=== PATIENT | female | born 1985 | race Caucasian/White ===

== ENCOUNTER 2016-11-06 12:09 | Emergency (ER) | payer OTHER ==
[~2016-11-06] VITALS: Ht 154.9 cm; Wt 117.9 kg
[~2016-11-06 12:09] MED LIST: MOTRIN800 MG PO; PRENATAL VITAMI1 T10 PO
[2016-11-06 12:11] VITALS: BP 114/80
--- NOTE | 2016-11-06 12:20 | NUR ---
Patient ambulated to bed 6. INVOICE CODER evaluating patient at bedside.
--- NOTE | 2016-11-06 12:42 | NUR ---
Patient being evaluated by physician at bedside.
[2016-11-06] MEDS ORDERED: ONDANSETRON 4 MG/2 ML VIAL IVP ONE (12:45)
[2016-11-06] MEDS ORDERED: MORPHINE SULFATE 10 MG/ML SYR IVP ONE (12:45)
--- NOTE | 2016-11-06 13:11 | NUR ---
31/F presents to ED for evaluation of RUQ abdominal pain since yesterday. Pt c/o sharp pain to RUQ, pt states she has hx of gallstones. Patient states the pain was sudden onset, sharp, non radiating, 04/25. Patient denies N/V/D. Denies s/s of UTI. Denies fever or chills. LMP currently. Patient appears restless and rubbing her RUQ. Abdomen soft, non tender, active bowel sounds x4 quadrants. Patient is AOX4, serbian speaking. VSS.
--- NOTE | 2016-11-06 13:55 | NUR ---
Pt is now telling me that she had tested positive for a urine 2 weeks ago. Patient states now that her LMP was some time in September but she is not sure. Pt provided a urine sample.
--- NOTE | 2016-11-06 13:59 | NUR ---
Dr. Elise made aware of patient's urine results. Pt reports being G-8, P-5, A-2 with 2 miscarriages. Pt states she started bleeding yesterday after the sudden onset of patient and states "I passed a ball of I don't know what."
--- NOTE | 2016-11-06 14:32 | NUR ---
Patient appears to be resting comfortably in bed. Vital Signs within normal limits. Respirations even and unlabored.
--- NOTE | 2016-11-06 14:51 | NUR ---
Patient taken to US via w/c.
--- NOTE | 2016-11-06 16:19 | NUR ---
Patient appears to be resting comfortably in bed. Vital Signs within normal limits. Respirations even and unlabored.
--- NOTE | 2016-11-06 19:20 | NUR ---
Pt report given to Sven. Transfer of care at this time.
--- NOTE | 2016-11-06 19:37 | NUR ---
RECEIVED PT IN STABLE CONDITION FROM JOHN MOLINA. NO SOB, NO SIGNS OF DISTRESS. STABLE. WILL CONTINUE TO MONITOR.
--- NOTE | 2016-11-06 19:37 | NUR ---
Pt report given to Ashly. Transfer of care at this time.
[2016-11-06 19:50] VITALS: BP 105/67
--- NOTE | 2016-11-06 19:50 | NUR ---
Patient discharged with v/s stable. Written and verbal after care instructions given and explained. Patient alert, oriented and verbalized understanding of instructions. Ambulatory with steady gait. All questions addressed prior to discharge. ID band removed. Patient advised to follow up with PMD. Rx of ANH THORPE given. Patient educated on indication of medication including possible reaction and side effects. Opportunity to ask questions provided and answered.
== END 2016-11-06 19:50 | disposition home or self-care (01) ==
LOC: MED 12:09
DX: O20.0 Threatened abortion (principal); O99.611 Diseases of the digestive system complicating pregnancy, first trimester; K80.70 Calculus of gallbladder and bile duct without cholecystitis without obstruction; Z3A.08 8 weeks gestation of pregnancy
CPT/HCPCS: 36415; 76705; 76801; 80053; 81025; 84702; 85025; 86901; 96374; 96375; 99285; J2270; J2405; Q0092

== ENCOUNTER 2018-06-22 14:48 | Emergency (ER) | payer OTHER ==
[~2018-06-22] VITALS: Ht 157.5 cm; Wt 136.1 kg
[~2018-06-22 14:48] MED LIST changes: +IBUP-974 PO; -MOTRIN800 MG PO; +PREN-385 PO; -PRENATAL VITAMI1 T10 PO
[2018-06-22 15:00] VITALS: BP 134/63
--- NOTE | 2018-06-22 15:29 | NUR ---
PATIENT AMBULATED TO ER BED 11.
--- NOTE | 2018-06-22 15:32 | NUR ---
PT C/O LOW BACK PAIN X1 DAY, DENIES TRAUMA INJURY. REPORTS 10/10 SHARP PAIN. DENIES N/V/D; SKIN IS PINK/WARM/DRY; AAOX4 WITH EVEN AND STEADY GAIT; LUNGS CLEAR BL; HR EVEN AND REGULAR; PT DENIES ANY FEVER, CP, SOB, OR COUGH AT THIS TIME; VSS; PATIENT POSITIONED FOR COMFORT; HOB ELEVATED; BEDRAILS UP X2; BED DOWN. ER MD MADE AWARE OF PT STATUS.
[2018-06-22] MEDS ORDERED: KETOROLAC 60 MG/2 ML VIAL IM ONE (15:45)
--- NOTE | 2018-06-22 17:00 | NUR ---
NO STATED NEEDS AT THIS TIME.
--- NOTE | 2018-06-22 18:11 | NUR ---
DR MCCARTHY AT BEDSIDE.
[2018-06-22 18:31] VITALS: BP 125/65
== END 2018-06-22 18:32 | disposition home or self-care (01) ==
LOC: MED 14:48
DX: M54.5 Low back pain (principal); R11.2 Nausea with vomiting, unspecified; Z79.899 Other long term (current) drug therapy
CPT/HCPCS: 81002; 81025; 96372; 99283; J1885

== ENCOUNTER 2018-11-22 08:54 | Emergency (ER) | payer OTHER ==
[~2018-11-22] VITALS: Ht 154.9 cm; Wt 176.9 kg
[2018-11-22 09:04] VITALS: BP 159/89
--- NOTE | 2018-11-22 09:18 | NUR ---
PATIENT PRESENTS TO ED WITH c/o suprapubic pain and burning pain upon voiding x yesterday pain radiating to right flank also adds chronic constipation and nausea after eating .; SKIN IS PINK/WARM/DRY; AAOX4 WITH EVEN AND STEADY GAIT; LUNGS CLEAR BL; HR EVEN AND REGULAR; PT DENIES ANY FEVER, CP, SOB, OR COUGH AT THIS TIME; PATIENT STATES PAIN OF 9/10 AT THIS TIME; VSS; PATIENT POSITIONED FOR COMFORT; HOB ELEVATED; BEDRAILS UP X2; BED DOWN. ER MD MADE AWARE OF PT STATUS.
[2018-11-22] MEDS ORDERED: KETOROLAC 60 MG/2 ML VIAL IM ONE (09:20)
[2018-11-22] MEDS ORDERED: ONDANSETRON 4 MG ODT PO ONE (09:20)
--- NOTE | 2018-11-22 09:33 | NUR ---
PT HAD REFUSED BLOOD WORK IF SHE WAS NOT GOING TO HAVE AN ULTRASOUND. Libra Diaz NOTIFIED AND SPOKE WITH PT---PT WILL HAVE BLOOD WORK
[2018-11-22 09:59] LABS: BASOPHILS % (AUTO) 0.4 % (0.0-2.0); EOSINOPHILS # (AUTO) 0.3 K/uL (0-0.4); EOSINOPHILS % (AUTO) 2.8 % (0.0-4.0); HEMATOCRIT 37.6 % (36-48); HEMOGLOBIN 12.2 g/dL (12.0-16.0); LYMPHOCYTES # (AUTO) 2.6 K/uL (2.5-16.5); LYMPHOCYTES % (AUTO) 28.1 % (20.5-51.1); MEAN CORPUSCULAR HEMOGLOBIN 28 pg (27-31); MEAN CORPUSCULAR HGB CONC 32 g/dL (33-37); MEAN CORPUSCULAR VOLUME 87.3 fL (80-94); MONOCYTES # (AUTO) 0.7 K/uL (0.8-1.0); NEUTROPHILS # (AUTO) 5.7 K/uL (1.8-7.7); NEUTROPHILS % (AUTO) 60.7 % (42.2-75.2); PLATELET COUNT (AUTO) 209 K/uL (140-450); RED BLOOD CELL COUNT(AUTO) 4.31 MIL/uL (4.20-5.40); RED CELL DISTRIBUTION WIDTH 15.6 % (11.6-13.7); WHITE BLOOD COUNT (AUTO) 9.3 K/uL (4.8-10.8)
[2018-11-22 10:08] LABS: APPEARANCE,URINE CLEAR (CLEAR); BILIRUBIN,URINE NEGATIVE (NEGATIVE); BLOOD, URINE NEGATIVE (NEGATIVE); COLOR,URINE YELLOW (YELLOW); LEUKOCYTE ESTERASE ,URINE NEGATIVE (NEGATIVE); NITRITE, URINE NEGATIVE (NEGATIVE); UGLUCOSE NEGATIVE (NEGATIVE)
[2018-11-22 10:24] LABS: ANION GAP 11.2 (8-16); CARBON DIOXIDE 28.7 mmol/L (21-32); CREATININE 0.6 mg/dL (0.6-1.3); POTASSIUM 3.9 mmol/L (3.5-5.1)
[2018-11-22 10:29] LABS: ALBUMIN 3.1 g/dL (3.4-5.0); TOTAL BILIRUBIN 0.4 mg/dL (0.0-1.0)
[2018-11-22 11:22] VITALS: BP 147/91
--- NOTE | 2018-11-22 11:23 | NUR ---
Patient discharged with v/s stable. Written and verbal after care instructions given and explained. Patient alert, oriented and verbalized understanding of instructions. Ambulatory with steady gait. All questions addressed prior to discharge. ID band removed. Patient advised to follow up with PMD. Rx of KEFLEX/ZOFRAN/NORCO given. Patient educated on indication of medication including possible reaction and side effects. Opportunity to ask questions provided and answered. LAB RESULTS HANDED TO PT FOR F/U WITH PMD
== END 2018-11-22 11:23 | disposition home or self-care (01) ==
LOC: MED 08:54
DX: K80.20 Calculus of gallbladder without cholecystitis without obstruction (principal); Z79.1 Long term (current) use of non-steroidal anti-inflammatories (NSAID); Z79.899 Other long term (current) drug therapy
CPT/HCPCS: 36415; 80053; 81003; 81025; 83605; 83690; 85025; 87040; 96372; 99283; J1885; Q0162

== ENCOUNTER 2018-12-22 15:35 | Emergency (ER) | payer OTHER ==
[~2018-12-22] VITALS: Ht 154.9 cm; Wt 182.8 kg
--- NOTE | 2018-12-22 16:15 | NUR ---
PATIENT PRESENTS TO ED WITH C/O RT FOOT PAIN X 1 MONTH . REPORTS BURNING CONSTANT PAIN OF 9/10. PT DENIES TRAUMA/INJURY. VSS. PATIENT POSITIONED FOR COMFORT; HOB ELEVATED; BEDRAILS UP X1; BED DOWN. PENDING ER MD EVALUATION.
[2018-12-22] MEDS ORDERED: KETOROLAC 60 MG/2 ML VIAL IM ONE (16:20)
[2018-12-22 17:40] VITALS: BP 121/60
== END 2018-12-22 17:41 | disposition home or self-care (01) ==
LOC: MED 15:35
DX: M79.671 Pain in right foot (principal); Z79.1 Long term (current) use of non-steroidal anti-inflammatories (NSAID); Z79.899 Other long term (current) drug therapy
CPT/HCPCS: 73630; 81025; 96372; 99283; J1885; 81002

== ENCOUNTER 2021-08-10 11:05 | Emergency (ER) | payer OTHER ==
[~2021-08-10] VITALS: Ht 157.5 cm; Wt 107.0 kg
[2021-08-10 11:26] VITALS: BP 143/93
--- NOTE | 2021-08-10 11:29 | NUR ---
TENT 2.
--- NOTE | 2021-08-10 11:30 | NUR ---
BIB FAMILY C/O COUGH, 02/22 GAYTAN, SORE THROAT, BODY ACHE X 3 DAYS. PMH: DM
[2021-08-10] MEDS ORDERED: ACETAMINOPHEN EXTRA STRENGTH 500 MG TAB PO ONE (11:50)
[2021-08-10] MEDS ORDERED: BPM/118S31 PO (12:19)
[2021-08-10] MEDS ORDERED: ACET-10509 PO (12:19)
--- NOTE | 2021-08-10 12:19 | NUR ---
PT SWABBED FOR HEATH PAYTON, WALKED TO LAB.
[2021-08-10 13:46] VITALS: BP 136/87
--- NOTE | 2021-08-10 13:46 | NUR ---
Patient discharged with v/s stable. Written and verbal after care instructions given FOR VIRAL ILLNESSand explained. Patient alert, oriented and verbalized understanding of instructions. Ambulatory with steady gait. All questions addressed prior to discharge. ID band removed. Patient advised to follow up with PMD. Rx of TYNENOL, AND BROMFED given. Patient educated on indication of medication including possible reaction and side effects. Opportunity to ask questions provided and answered.
== END 2021-08-10 13:46 | disposition home or self-care (01) ==
LOC: MED 11:05
DX: B34.9 Viral infection, unspecified (principal); Z20.822 Contact with and (suspected) exposure to COVID-19; I10 Essential (primary) hypertension
CPT/HCPCS: 99283; U0003

== ENCOUNTER 2023-05-05 11:26 | Inpatient (IN) | payer OTHER ==
[~2023-05-05] VITALS: Ht 152.4 cm; Wt 162.0 kg
[~2023-05-05 11:26] MED LIST changes: +ACET-10509 PO; +BROM118S70 PO
[2023-05-05 11:35] VITALS: BP 196/102; PULSE 73; RESP 18; TEMP 98; O2SAT 98
[2023-05-05 15:07] LABS: BASOPHILS # (AUTO) 0.1 K/uL (0.00-0.22); EOSINOPHILS # (AUTO) 0.1 K/uL (0-0.4); LYMPHOCYTES # (AUTO) 3.5 K/uL (2.5-16.5); MONOCYTES # (AUTO) 1.1 K/uL (0.8-1.0)
[2023-05-05] MEDS ORDERED: NACL 0.9% 1,000 ML IV ONE (15:35)
[2023-05-05 16:12] LABS: APPEARANCE,URINE CLEAR (CLEAR); BILIRUBIN,URINE NEGATIVE (NEGATIVE); BLOOD, URINE TRACE-I (NEGATIVE); COLOR,URINE YELLOW (YELLOW); LEUKOCYTE ESTERASE ,URINE NEGATIVE (NEGATIVE); NITRITE, URINE NEGATIVE (NEGATIVE); PH,URINE 6.5 (5.0-9.0); PROTEIN,URINE TRACE (NEGATIVE); UGLUCOSE 3+ (NEGATIVE); UROBILINOGEN,URINE 0.2 EU/dL (0.2 - 1)
[2023-05-05 16:14] LABS: ALBUMIN 3.6 g/dL (3.4-5.0); ANION GAP 13.9 (8-16); CALCIUM 9.1 mg/dL (8.5-10.1); CARBON DIOXIDE 25.7 mmol/L (21-32); CREATININE 0.5 mg/dL (0.6-1.3); POTASSIUM 5.6 mmol/L (3.5-5.1); TOTAL PROTEIN, SERUM 7.6 g/dL (6.4-8.2)
[2023-05-05 16:18] LABS: BASOPHILS % (AUTO) 0.7 % (0.0-2.0); EOSINOPHILS % (AUTO) 1.8 % (0.0-4.0); HEMATOCRIT 44.1 % (36-48); HEMOGLOBIN 14.7 g/dL (12.0-16.0); LYMPHOCYTES % (AUTO) 34.4 % (20.5-51.1); MEAN CORPUSCULAR HEMOGLOBIN 30 pg (27-31); MEAN CORPUSCULAR HGB CONC 34 g/dL (33-37); MEAN CORPUSCULAR VOLUME 88.8 fL (80-94); NEUTROPHILS # (AUTO) 7.8 K/uL (1.8-7.7); NEUTROPHILS % (AUTO) 56.1 % (42.2-75.2); PLATELET COUNT (AUTO) 172 K/uL (140-450); RED BLOOD CELL COUNT(AUTO) 4.96 MIL/uL (4.20-5.40); RED CELL DISTRIBUTION WIDTH 14.2 % (11.6-13.7); WHITE BLOOD COUNT (AUTO) 13.8 K/uL (4.8-10.8)
[2023-05-05 16:26] LABS: RBC,URINE 20-50 /HPF (0-5)
[2023-05-05 16:27] LABS: BACTERIA,URINE 1+ /HPF (None Seen); MUCUS,URINE None Seen /LPF (None Seen); SQUAMOUS EPITHELIAL CELL,UR None Seen /LPF (0-3 (FEW)); YEAST,URINE None Seen /HPF (None Seen)
[2023-05-05] MEDS ORDERED: KETOROLAC 30 MG/ML VIAL IVP ONE (16:45)
[2023-05-05] MEDS ORDERED: cefTRIAXone 1,000 MG VIAL ONE (16:51)
[2023-05-05] MEDS ORDERED: MAGNESIUM OXIDE 400 MG TAB PO PRN (17:20)
[2023-05-05] MEDS ORDERED: ACETAMINOPHEN 325 MG TAB PO PRN (17:20)
[2023-05-05] MEDS ORDERED: KCL 20 MEQ IN 100 mL PREMIX 200 ML IV PRN (17:20)
[2023-05-05] MEDS ORDERED: HYDROcodone/APAP 5/325 MG 1 TAB TAB PO PRN (17:20)
[2023-05-05] MEDS ORDERED: POTASSIUM CHLORIDE 10 MEQ TABER PO PRN (17:20)
[2023-05-05] MEDS ORDERED: ONDANSETRON 4 MG/2 ML VIAL IVP PRN (17:20)
[2023-05-05] MEDS ORDERED: hydrALAZINE 20 MG/ML VIAL IVP PRN (17:25)
[2023-05-05] MEDS: NIFEdipine 60 MG TABER PO SCH (18:09)
[2023-05-05 18:12] VITALS: BP 145/81; PULSE 54; RESP 18; TEMP 97; O2SAT 98
[2023-05-05 18:13] VITALS: PULSE 54; RESP 18; O2SAT 98
[2023-05-05 20:00] VITALS: BP 138/78; PULSE 77; RESP 20; TEMP 97.4; O2SAT 96
[2023-05-05 20:01] VITALS: PULSE 75
[2023-05-05] MEDS: BLOOD GLUCOSE MONITORING 1 DEV DEV FS SCH (21:14)
[2023-05-05] MEDS: INSULIN LISPRO SLIDING SCALE 100 UNITS/ML VIAL SUBQ PRN (21:16)
[2023-05-05 23:54] VITALS: PULSE 61
[2023-05-06] VITALS (9 sets, daily range): BP systolic 108–143; BP diastolic 62–78; PULSE 62–95; RESP 16–20; TEMP 97.9–98.8; O2SAT 94–99
[2023-05-06] MEDS: MORPHINE SULFATE 4 MG/ML SYR IVP PRN ×2 (04:29→20:30)
[2023-05-06 06:41] LABS: CALCIUM 8.9 mg/dL (8.5-10.1); CARBON DIOXIDE 25.6 mmol/L (21-32); CREATININE 0.6 mg/dL (0.6-1.3); POTASSIUM 3.6 mmol/L (3.5-5.1)
[2023-05-06] MEDS: BLOOD GLUCOSE MONITORING 1 DEV DEV FS SCH ×4 (06:41→20:11)
[2023-05-06] MEDS: INSULIN LISPRO SLIDING SCALE 100 UNITS/ML VIAL SUBQ PRN ×4 (06:57→20:21)
[2023-05-06 07:13] LABS: BASOPHILS % (AUTO) 0.3 % (0.0-2.0); EOSINOPHILS # (AUTO) 0.3 K/uL (0-0.4); EOSINOPHILS % (AUTO) 2.6 % (0.0-4.0); HEMATOCRIT 42.6 % (36-48); HEMOGLOBIN 14.1 g/dL (12.0-16.0); LYMPHOCYTES # (AUTO) 3.7 K/uL (2.5-16.5); LYMPHOCYTES % (AUTO) 34.8 % (20.5-51.1); MEAN CORPUSCULAR HEMOGLOBIN 30 pg (27-31); MEAN CORPUSCULAR HGB CONC 33 g/dL (33-37); MEAN CORPUSCULAR VOLUME 89.7 fL (80-94); MONOCYTES # (AUTO) 0.6 K/uL (0.8-1.0); MONOCYTES % (AUTO) 5.7 % (1.7-9.3); NEUTROPHILS # (AUTO) 5.9 K/uL (1.8-7.7); NEUTROPHILS % (AUTO) 56.6 % (42.2-75.2); PLATELET COUNT (AUTO) 157 K/uL (140-450); RED BLOOD CELL COUNT(AUTO) 4.74 MIL/uL (4.20-5.40); RED CELL DISTRIBUTION WIDTH 14.2 % (11.6-13.7); WHITE BLOOD COUNT (AUTO) 10.5 K/uL (4.8-10.8)
[2023-05-06] MEDS: NIFEdipine 60 MG TABER PO SCH (09:35)
[2023-05-06] MEDS: INSULIN LANTUS 100 UNITS/ML 10 ML VIAL SUBQ SCH (16:25)
[2023-05-07 06:20] LABS: BASOPHILS % (AUTO) 0.3 % (0.0-2.0); EOSINOPHILS # (AUTO) 0.3 K/uL (0-0.4); EOSINOPHILS % (AUTO) 2.9 % (0.0-4.0); HEMATOCRIT 41.2 % (36-48); HEMOGLOBIN 13.4 g/dL (12.0-16.0); LYMPHOCYTES % (AUTO) 34.5 % (20.5-51.1); MEAN CORPUSCULAR HEMOGLOBIN 29 pg (27-31); MEAN CORPUSCULAR HGB CONC 33 g/dL (33-37); MONOCYTES # (AUTO) 0.7 K/uL (0.8-1.0); MONOCYTES % (AUTO) 5.8 % (1.7-9.3); NEUTROPHILS # (AUTO) 6.5 K/uL (1.8-7.7); NEUTROPHILS % (AUTO) 56.5 % (42.2-75.2); PLATELET COUNT (AUTO) 158 K/uL (140-450); RED BLOOD CELL COUNT(AUTO) 4.63 MIL/uL (4.20-5.40); RED CELL DISTRIBUTION WIDTH 14.3 % (11.6-13.7); WHITE BLOOD COUNT (AUTO) 11.5 K/uL (4.8-10.8)
[2023-05-07 06:36] LABS: ANION GAP 10.8 (8-16); CALCIUM 8.8 mg/dL (8.5-10.1); CREATININE 0.6 mg/dL (0.6-1.3); POTASSIUM 3.8 mmol/L (3.5-5.1)
[2023-05-07] MEDS: INSULIN LISPRO SLIDING SCALE 100 UNITS/ML VIAL SUBQ PRN ×3 (06:48→16:14)
[2023-05-07] MEDS: BLOOD GLUCOSE MONITORING 1 DEV DEV FS SCH ×3 (06:49→16:13)
[2023-05-07 08:00] VITALS: BP 111/77; PULSE 80; RESP 18; TEMP 98.7; O2SAT 97
[2023-05-07] MEDS: NIFEdipine 60 MG TABER PO SCH (10:28)
[2023-05-07] MEDS: INSULIN LANTUS 100 UNITS/ML 10 ML VIAL SUBQ SCH (10:31)
[2023-05-07] MEDS ORDERED: NIFE60TA39 PO (11:57)
[2023-05-07] MEDS ORDERED: CEFD300C3 PO (11:59)
== END 2023-05-07 16:30 | disposition home or self-care (01) | DRG 720 ==
LOC: MED 11:26 → MTU 17:20
PROVIDERS: ADMIT Student in an Organized Health Care Education/Training Program; ATTEND Student in an Organized Health Care Education/Training Program
DX: A41.9 Sepsis, unspecified organism (principal); Z68.44 Body mass index [BMI] 60.0-69.9, adult; I16.0 Hypertensive urgency; N39.0 Urinary tract infection, site not specified; E66.9 Obesity, unspecified; E78.5 Hyperlipidemia, unspecified; I10 Essential (primary) hypertension; E11.9 Type 2 diabetes mellitus without complications; Z79.1 Long term (current) use of non-steroidal anti-inflammatories (NSAID); Z79.899 Other long term (current) drug therapy
CPT/HCPCS: 36415; 71045; 76856; 80048; 80053; 81001; 82009; 82948; 83690; 84484; 85025; 85379; 87081; 87086; 87491; 93005; 96361; 96365; 96375; 99285; J0696; J1644; J1815; J1885; J2270; J2405; J7060; Q0092